=== PATIENT | male | born 1960 | race Caucasian/White ===

== ENCOUNTER 2016-08-27 11:28 | Day surgery (SDC) | payer BC ==
[~2016-08-27 11:28] MED LIST: Buffered Lidocaine 1% SYR 3ML* 3 ML/SYR SYRINGE INTRADERM ONE; Dexamethasone IV* 4 MG/ML 1 ML (4 MG) IV SLOW PU ONE; Famotidine IV* 10 MG/ML 2 ML (20 mg) IV ONE
[2016-08-27] MEDS ORDERED: Famotidine IV* 10 MG/ML 2 ML (20 mg) ONE (11:38)
[2016-08-27] MEDS ORDERED: Dexamethasone IV* 4 MG/ML 1 ML (4 MG) ONE (11:38)
[2016-08-27] MEDS ORDERED: Clindamycin 900 MG IVPREMIX(* 900 MG/50 ML SDV IV ONE (11:38)
[2016-08-27] MEDS ORDERED: Bupivacaine 0.5% W/EPI SDV* 30 ML VIAL ONE (11:54)
[2016-08-27] MEDS ORDERED: Levalbuterol 1.25MG/0.5ML NEB ONE (12:22)
[2016-08-27] MEDS ORDERED: Levalbuterol 0.63MG/3ML NEB INH ONE (12:22)
[2016-08-27] MEDS ORDERED: oxyCODONE/Acetamin 5/325 MG* TAB PO PRN ×3 (12:24→14:22)
[2016-08-27] MEDS ORDERED: HYDROmorphone INJ* 1 MG/ML CARPUJECT SYRINGE IV PRN (12:24)
[2016-08-27] MEDS ORDERED: Ondansetron INJ* 2 MG/ML VIAL IV PRN (12:24)
[2016-08-27] MEDS ORDERED: fentaNYL* 50 MCG/ML 2 ML VIAL (100 MCG VIAL) IV PRN (12:24)
[2016-08-27] MEDS ORDERED: Midazolam* 1 MG/ML 5 ML VIAL (5 MG) ONE (12:37)
[2016-08-27] MEDS ORDERED: fentaNYL* 50 MCG/ML 5 ML VIAL (250 MCG VIAL) ONE (12:37)
[2016-08-27] MEDS ORDERED: Atracurium* 10 MG/ML 10 ML VIAL ONE (12:37)
[2016-08-27] MEDS ORDERED: Ketorolac INJ* 30 MG/ML 1 ML VIAL ONE (12:38)
[2016-08-27] MEDS ORDERED: Lidocaine 2% PF * 5 ML VIAL ONE (12:38)
[2016-08-27] MEDS ORDERED: Propofol* 10 MG/ML 20 ML BTL IV PUSH ONE (12:38)
[2016-08-27] MEDS ORDERED: Ondansetron INJ* 2 MG/ML VIAL ONE (12:38)
[2016-08-27] MEDS ORDERED: EPHEDrine (Pressors)* 50 MG/ML VIAL ONE (13:13)
[2016-08-27] MEDS ORDERED: Glycopyrrolate IV* 0.2 MG/ML 1 ML VIAL ONE (13:36)
[2016-08-27] MEDS ORDERED: Ibuprofen TAB* 400 MG PO PRN (14:23)
[2016-08-27 15:14] VITALS: BP 124/84
--- NOTE | 2016-08-28 04:18 | OP ---
DATE OF OPERATION: 08/27/16 - [facility] DATE OF : 56 SURGEON: Dr. Ferdinand Blake. RE ETCHER: CAROLYNN Massey ANESTHESIOLOGIST: Dr. Chele Higgins. ANESTHESIA: General endotracheal. PRE-OP DIAGNOSIS: Right inguinal hernia. POST-OP DIAGNOSIS: Right inguinal hernia. OPERATIVE PROCEDURE: Laparoscopic preperitoneal repair of right inguinal hernia with mesh. ESTIMATED BLOOD LOSS: Minimal. IV FLUIDS: 1200 mL crystalloids. SPECIMENS: None. DRAINS: None. COMPLICATIONS: None. COUNTS: Instrument, needle, and sponge counts correct. DESCRIPTION OF PROCEDURE: The patient was brought to the operating room and placed on the table supine. Sequential compression devices were placed on both lower extremities and general anesthesia was administered. He had Macias catheters placed. He was positioned and padded appropriately. He was prepped and dapped in the usual sterile fashion. Time-out was performed. Local anesthetic was infiltrated into the skin and soft tissue prior to making each incision. The initial incision was a curvilinear infraumbilical incision using an 11-blade scalpel. After identifying the anterior rectus fascia to the right of midline it was incised transversely and underlying muscles were retracted laterally and then a preperitoneal balloon dissector was placed down to the pubic symphysis and insufflated under direct visualization. The balloon dissector was removed. A 12-mm blunt port was placed and carbon dioxide insufflated to a pressure of 10 mmHg. Under direct visualization, two 5-mm trocars were placed in the lower midline. The dissected proceeded medial to laterally identifying pubic symphysis, Rj' s ligament, and the inferior epigastric vessels. There was a small direct inguinal hernia defect identified and fat was reduced from this. Laterally, the cord components were identified. The peritoneal sac was dissected free from the cord components and this did appear to extend to be an indirect inguinal hernia as well. There was inadvertent injury to the peritoneum which was eventually closed with the 5-mm clip lay out maker. After completing the dissection laterally to the anterior superior iliac spine, repair was performed with the Bard 3D Max large sized mesh for a right side hernia. This was positioned to the preperitoneal space and was unfurled to cover the direct, indirect, and femoral spaces, and the CapSure tacker was used to secure the mesh at the pubis and to Rj's ligament. Subsequently, the space was allowed to desufflate assuring the mesh to be in good position. The ports were removed. Due to pneumoperitoneum, the peritoneal space was accessed through the infraumbilical site and drained of carbon dioxide. The wound was then closed with 3-0 Polysorb in an interrupted fashion to close the posterior and anterior rectus sheath. Skin incisions were closed with 4-0 Monocryl in a subcuticular fashion. Steri-strips were applied. The patient was extubated uneventfully. Macias catheter was removed. He was transferred to the recovery room in stable condition. CC: Chele Tovar MD* [id number]/[facility] #: [id number] MTDD
[2016-08-28] MEDS ORDERED: Prenatal Vitamin TAB PO SCH (09:00)
== END 2016-08-27 15:14 | disposition home or self-care (01) ==
LOC: OR 11:28
PROVIDERS: ATTEND Surgery
DX: K40.91 Unilateral inguinal hernia, without obstruction or gangrene, recurrent (principal); F17.210 Nicotine dependence, cigarettes, uncomplicated
CPT/HCPCS: A9270-GY; C1776; C1781; J1100; J1885; J2250; J2405; J2704; J3010

== ENCOUNTER 2019-08-28 06:45 | Observation (INO) | payer BC ==
--- NOTE | 2019-08-28 07:29 | ED ---
HPI Chest Pain - HPI Summary HPI Summary: Patient is a 59 y/o M presenting to the ED for a chief complaint of intermittent diffuse chest pain that began on 08/24/19. Patient is present with his and daughter. Patient states the chest pain recurred on 08/28/19, waking him from his sleep. Previously, the chest pain was non-radiating, but on 08/28/19, the chest pain began to radiate to his jaw, which he denies ever having in the past. Currently, the jaw pain is resolved. The chest pain is described as a cramping sensation. The chest pain worsens with exertion and improves with rest. Patient notes nausea and change in appetite that he attributes to having an "upset stomach." Patient denies fever, diaphoresis, shortness of breath, or rash. Any significant PMHx is denied. PSHx is significant for inguinal hernia repair, but he denies any recent surgery. FMHx is significant for cardiac disease in his mother who has a pacemaker and had a cardiac stent placed. He denies taking any medications daily. Patient admits tobacco use of 1 ppd and drinking alcohol daily, but none on 08/28/19. He denies drug use. Patient denies taking aspirin on 08/28/19. Patient denies ever having taken nitroglycerin. 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 He denies the chest pain has prevented him from working. Allergies to any medications are denied. Patients medication reviewed this visit. - History of Current Complaint Chief Complaint: EDChestPainROMI Time Seen by Provider: 08/28/19 07:07 Hx Obtained From: Patient Onset/Duration: Atraumatic, Still Present Timing: Intermittent Initial Severity: Moderate Current Severity: Mild Pain Intensity: 1 Pain Scale Used: 0-10 Numeric Chest Pain Location: Diffuse Chest Pain Radiates: Yes Chest Pain Radiates To:: Jaw Character: Other: - Cramping Aggravating Factor(s): Exertion Alleviating Factor(s): Rest Associated Signs and Symptoms: Positive: Chest Pain, Nausea. Negative: Shortness of Breath, Fever, Diaphoresis - Allergy/Home Medications Allergies/Adverse Reactions: Allergies Allergy/AdvReac Type Severity Reaction Status Date / Time Penicillins Allergy Mild Rash And Verified 08/28/19 06:54 Itching Home Medications: Home Medications NK [No Home Medications Reported] 08/28/19 [History Confirmed 08/28/19] PMH/Surg Hx/FS Hx/Imm Hx Previously Healthy: Yes Endocrine/Hematology History: Denies: Hx Diabetes Cardiovascular History: Denies: Hx Congestive Heart Failure, Hx Hypercholesterolemia, Hx Hypertension Respiratory History: Reports: Hx Sleep Apnea - REPORT IN CHART STATES MOD SLEEP APNEA, PT. DENIES GI History: Reports: Other GI Disorders - INGUINAL HERNIA History: Denies: Hx Renal Disease Musculoskeletal History: Reports: Hx Arthritis - WRISTS Sensory History: Denies: Hx Contacts or Glasses, Hx Legally Blind, Hx Deafness, Hx Hearing Aid Opthamlomology History: Denies: Hx Contacts or Glasses, Hx Legally Blind EENT History: Denies: Hx Deafness - Surgical History Surgical History: Yes Surgery Procedure, Year, and Place: 1988 RIGHT INGUINAL HERNIA REPAIR [facility]. 1995 RIGHT WRIST BONE GRAFT [facility]. 2008 BILATERAL EYE LASER. 02/10/2014 LEFT UPPER BACK NARROW EXCISION [facility]. 02/2014 WIDER EXCISION LEFT UPPER BACK WITH SENTINAL NODE BIOPSIES Hx Anesthesia Reactions: No - Immunization History Date of Tetanus Vaccine: unknow Infectious Disease History: No Infectious Disease History: Denies: Traveled Outside the [place] in Last 30 Days - Family History Known Family History: Positive: Cardiac Disease - Social History Occupation: Employed Full-time Lives: With Family Alcohol Use: Daily Alcohol Amount: WHISKEY X 1 NIGHT Hx Substance Use: No Substance Use Type: Reports: None Hx Tobacco Use: Yes Smoking Status (MU): Heavy Every Day Tobacco Smoker Type: Cigarettes Amount Used/How Often: 2-3 CIGS/DAY SINCE 02/10/14, WAS 1-1/2 PPD 40 YRS Have You Smoked in the Last Year: Yes - 1 ppd Review of Systems Negative: Fever, Skin Diaphoresis Positive: Other - Positive jaw pain that radiates from the chest Positive: Chest Pain - Diffuse, radiates to the jaw Negative: Shortness Of Breath Positive: Nausea Negative: Rash All Other Systems Reviewed And Are Negative: Yes Physical Exam Triage Information Reviewed: Yes Vital Signs On Initial Exam: Initial Vitals Temp Pulse Resp BP Pulse Ox 97.7 F 68 15 142/83 99 08/28/19 06:52 08/28/19 06:52 08/28/19 06:52 08/28/19 06:52 08/28/19 06:52 Vital Signs Reviewed: Yes Procedures - Sedation Patient Received Moderate/Deep Sedation with Procedure: No Diagnostics - Vital Signs Vital Signs Temp Pulse Resp BP Pulse Ox 08/28/19 07:00 67 19 97 08/28/19 06:59 66 12 129/87 97 08/28/19 06:52 97.7 F 68 15 142/83 99 - Laboratory Result Diagrams: 08/28/19 07:33 08/28/19 07:33 Lab Statement: Any lab studies that have been ordered have been reviewed, and results considered in the medical decision making process. - Radiology Chest X-ray Radiology Interpretation Completed By: Radiologist Summary of Radiographic Findings: Chest X-ray IMPRESSION: NO ACTIVE CARDIOPULMONARY DISEASE IS NOTED. Reviewed by Dr. Smart. - EKG 06:47 Cardiac Rate: NL - 69 BPM EKG Rhythm: Sinus Rhythm ST Segment: Normal Ectopy: None EKG Comparison: No Significant Change - From 03/2015 Summary of EKG Findings: EKG at 06:47 shows normal sinus rhythm with 69 bpm, no acute ST changes, inverted T wave in lead II, which is old. When compared to 2014, no significant change. Reviewed and interpreted by Dr. Smart. Re-Evaluation - Re-Evaluation First Eval Re-Evaluation Time: 08:10 Change: Unchanged Comment: At 08:10, I updated the patient on his results. He has had no recurrent pain. Chest Pain Course/Dx - Provider Notifications Discussed Care Of Patient With: Maritza Rodríguez - At 08:14, Dr. Maritza Rodríguez reviewed the patients case and agrees to admit the patient to [facility]. Time Discussed With Above Provider: 08:14 Instructed by Provider To: Admit As Inpatient Discharge ED - Sign-Out/Discharge Documenting (check all that apply): Patient Departure - Admit - Discharge Plan Condition: Stable Disposition: ADMITTED TO [facility] - Attestation Statements Document Initiated by Scribe: Yes Documenting Scribe: Delia Borden Provider For Whom Scribe is Documenting (Include Credential): Siena Smart MD Scribe Attestation: Delia Gibbs, scribed for Siena Smart MD on 08/28/19 at 1120. Status of Scribe Document: Ready
[2019-08-28] MEDS ORDERED: Aspirin 81 mg CHEW TAB* 81 MG TAB.CHEW PO ONE (07:42)
[2019-08-28 07:44] LABS: ABS Eosinophils 0.1 10^3/ul (0-0.6); ABS Lymphocytes 1.2 10^3/ul (1.0-4.8); ABS Monocytes 0.5 10^3/ul (0-0.8); ABS Neutrophils 2.3 10^3/ul (1.5-7.7); Eosinophil % 1.4 %; Hematocrit 43 % (42-52); Hemoglobin 14.8 g/dL (14.0-18.0); Lymphocyte % 29.4 %; Mean Corpuscular HGB Conc 34 g/dL (31-36); Mean Corpuscular Hemoglobin 30 pg (27-31); Mean Corpuscular Volume 88 fL (80-94); Mean Platelet Volume 8.1 fL (7.4-10.4); Nucleated Red Blood Cells % 0.2; Platelet Count 208 10^3/uL (150-450); Red Blood Count 4.91 10^6 /uL (4.18-5.48); Red Cell Distribution Width 13 % (10-15); White Blood Count 4.1 10^3/uL (3.5-10.8)
[2019-08-28 08:03] LABS: Albumin 3.6 g/dL (3.2-5.2); Albumin/Globulin Ratio 1.4 (1-3); BUN/Creatinine Ratio 25.9 (8-20); Calcium 8.6 mg/dL (8.6-10.3); EGFR African American 110.9 (>60); EGFR Non-African American 91.6 (>60); Globulin 2.6 g/dL (2-4); Magnesium 1.9 mg/dL (1.9-2.7); Potassium 4.1 mmol/L (3.5-5.0); Total Bilirubin 0.4 mg/dL (0.2-1.0); Total Protein 6.2 g/dL (6.4-8.9)
[2019-08-28] MEDS ORDERED: Acetaminophen TAB* 325 MG PO PRN (08:51)
[2019-08-28] MEDS ORDERED: Enoxaparin(*) 40 MG/0.4 ML SYR SUBCUT SCH (09:00)
[2019-08-28 09:12] LABS: HDL Cholesterol 36.8 mg/dL
--- NOTE | 2019-08-28 11:53 | HP ---
CC: Dr. Chele Tovar * HISTORY AND PHYSICAL: DATE OF ADMISSION: 08/28/19 PRIMARY CARE PROVIDER: Dr. Chele Tovar. ATTENDING: Dr. Maritza Rodríguez * (dictated by CAROLYNN De Luna). CHIEF COMPLAINT: Chest pain. HISTORY OF PRESENT ILLNESS: Mr. Malik is a 59-year-old male with a past medical history of obstructive sleep apnea, noncompliant with CPAP, history of tobacco abuse, who presented to the ER today with complaints of chest pain. The patient reports that this pain began Wednesday while he was sitting. He had sudden onset pain in the anterior chest that he described as cramping without radiation. It went away without intervention and came back intermittently throughout the weekend. He notes that every time the chest pain recurred, it lasted minutes and went away without intervention. He decided to come to the ER today when overnight he woke with chest pain 2 times throughout the night that he described as cramping that again lasted a couple of minutes and resolved on its own. This morning he again woke with pain that was associated with left jaw pain. His left jaw pain lasted 1 to 2 hours. He came to the ER and has since not had jaw pain or chest pain since arrival. He reports that his chest pain is worse with walking. He reports that chest pain is not reproducible. He denies associated nausea, dyspnea, or diaphoresis, although he did have nausea overnight and was unable to eat dinner due to this. He reports no recent travel. He has had symptoms like this in the past, although he has never received a cardiac workup before. 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 Again, his pain is not reproducible. His heart score is 4 , placing him at moderate risk with a 12-16.6% risk of MACE. In the ER, full workup was completed including CBC which was unremarkable. CMP unremarkable. Troponin 0.00 x1. EKG was obtained and revealed rate of 68 with T- wave inversion in lead III, which is unchanged from 2013 EKG. There was some abnormality in the anterior leads that made interpretation difficult and therefore a repeat EKG was performed, which revealed a rate of 58. Again, T- wave inversion in lead III (old). There is no ST elevation or depression. Anterior leads are unremarkable on repeat EKG. Chest x-ray was obtained and was unremarkable. The patient received aspirin 324 mg in the ER and the hospitalist team was asked to evaluate the patient for admission. PAST MEDICAL HISTORY: 1. History of malignant melanoma, status post resection in 2013. 2. Obstructive sleep apnea, noncompliant with CPAP machine. 3. Tobacco abuse. PAST SURGICAL HISTORY: Right inguinal hernia, right wrist, bilateral eye LASIK , melanoma excision left upper back followed by a wide excision of melanoma left upper back with sentinel node biopsy. HOME MEDICATIONS: None except occasional Motrin, last use was Wednesday08/25/19. DRUG ALLERGIES: PENICILLIN, rash/itching. FAMILY HISTORY: Mother has history of Crohn's disease, SLE, permanent pacemaker for third degree heart block. Father has a history of AFib and prostate cancer. Paternal grandfather at approximately age 72 from [place]. Maternal grandmother and maternal grandfather both had CVA. No family history of diabetes. SOCIAL HISTORY: The patient has a 50-pack year smoking history and is a current everyday smoker. He uses alcohol daily, approximately 1.5 ounces of whisky per day. 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 He is . He has 3 children, one of which is nonbiological. In the event that he is unable to make his own medical decisions, he has appointed his Lisa Malik to be his surrogate decision maker. PHYSICAL EXAMINATION GENERAL: Mr. Malik is a well-developed, well-nourished, slightly overweight middle- aged white male who is sitting up in bed. He appears comfortable and in no acute distress. He is breathing comfortably on room air. He is pleasant , cooperative, and appropriate. VITAL SIGNS: Temperature 97.7 oral, heart rate 58, respiratory rate 17, oxygen saturation 95% on room air, blood pressure 115/83. HEENT: PERRL, EOMI, visual gresham are grossly intact. Sclerae are nonicteric without injection. Hearing is grossly intact. Oral mucous membranes are moist. There are no lesions. The pharynx is clear. Tongue is at midline. Palate elevates symmetrically. PULMONARY: Symmetrical chest expansion. No use of accessory muscles. Clear to auscultation bilaterally without rhonchi, wheeze, or rales. CARDIOVASCULAR: Regular rate and rhythm with S1 and S2 present. There is no murmurs, rubs, clicks, or gallops. Chest wall is nontender to palpation. There is no visible JVD. There is no lower extremity edema. ABDOMEN: Bowel sounds in all quadrants. Soft and nontender to palpation. NEUROLOGIC: The patient is awake, he is alert and oriented x3. Cranial nerves II through XII are grossly intact. He is able to move all of his extremities with a motor strength of 5/5 bilaterally in the upper and lower extremities. Motor strength is equal. Jig Box Operator strength is equal. DIAGNOSTIC STUDIES AND LABORATORY DATA: 1. CBC: WBC 4.1, hemoglobin 14.8, hematocrit 48, MCV 88, platelet 208. 2. CMP: Sodium 138, potassium 4.1, chloride 109, carbon-dioxide 25, BUN 22, creatinine 0.85, glucose 104, magnesium 1.9. Total bili 0.40. AST 17, ALT 12. Alk phos 88, troponin 0.00. 3. EKG #1: Rate 69, T-wave inversion in lead III which dates as far back as 2012. There is an abnormality in the anterior leads, which led to repeating EKG. 4. EKG #2: Rate 58, T inversion in lead III (old). No ST elevation or depression. 5. Chest x-ray, impression: No active cardiopulmonary disease is noted. ASSESSMENT AND PLAN: Mr. Malik is an overweight 59-year-old male with past medical history of current tobacco abuse, obstructive sleep apnea, noncompliant with CPAP machine, and a positive family history of cardiac disease, who presented to the ER today with complaints of chest pain that is worsened with exertion. He will be admitted for: 1. Chest pain. Rule out acute coronary syndrome. The patient complains of left anterior chest pain that radiates to the left jaw and is worsened with exertion, not reproducible. In the ER, an EKG was relatively unremarkable with T-wave inversion in lead III. Troponins are negative x1. We will continue to trend troponins. The patient has received 324 mg of aspirin orally. He will continue 81 mg p.o. daily. The patient will be to obtain an exercise stress test today as the patient has relatively unremarkable EKG. Last oral intake was a banana at approximately 0630. Hemoglobin A1c and lipid panel are pending. 2. Tobacco abuse. The patient reports tobacco use. He declined nicotine replacement products at this time. 3. Obstructive sleep apnea. Noncompliant with CPAP machine. 4. DVT prophylaxis. According to the DVT risk assessment, the patient scores 3 placing him at high risk. He has been started on Lovenox. 5. Code status is full code. TIME SPENT: Approximately 60 minutes were spent on this admission, greater than half that time was spent [id number] with the patient and his family obtaining history, performing physical, and reviewing the plan of care. The case has been discussed with my attending Dr. Rodríguez who is in agreement with the plan of care. CAROLYNN GARCÍA [id number]/CPS #: [id number] MALDONADO
[2019-08-28 15:38] VITALS: BP 121/70
--- NOTE | 2019-08-29 01:30 | DS ---
CC: Dr. Chele Tovar * DISCHARGE SUMMARY: DATE OF ADMISSION: 08/28/19 DATE OF DISCHARGE: 08/28/19 PRIMARY CARE PROVIDER: Dr. Chele Tovar. ATTENDING PHYSICIAN: Maritza Rodríguez DO * (dictated by CAROLYNN De Luna). PRIMARY DIAGNOSES: 1. Chest pain, acute coronary syndrome ruled out. 2. Hyperlipidemia. SECONDARY DIAGNOSES: 1. History of malignant melanoma, status post resection in 2013. 2. Obstructive sleep apnea, noncompliant with CPAP. 3. Tobacco abuse. PERTINENT STUDIES WHILE IN THE HOSPITAL: Exercise stress test, impression: Normal ST changes, negative maximum adequate stress test. DISCHARGE MEDICATIONS: Home medications: None. New home medications: None. Changed home medications: None. HISTORY OF PRESENT ILLNESS/HOSPITAL COURSE: Mr. Malik is a 59-year-old male with past medical history of obstructive sleep apnea, noncompliant with CPAP, history of tobacco abuse, who presented to the ER today with complaints of chest pain. For full and complete details, please see the history and physical dictated by Wen Bowen on 08/28/19, but in short, the patient presents with chest pain that he has had intermittently over 3 days. He reports that pain worsened overnight waking him in the middle of the night. This morning pain began to radiate to his jaw. He therefore came to seek medical attention at the ER. His HEART score was 4, and therefore, he was admitted for ACS workup. An EKG was obtained and revealed rate of 58 with T-wave inversion in lead 3 which is old dating back to 2012. There was no ST elevation or depression. Chest x-ray was unremarkable. Troponins were 0.00 x3. An exercise stress test was pursued and reported normal ST changes during exercise with negative maximum adequate stress test. Risk stratification was obtained. Hemoglobin A1c was 5.6. LDL cholesterol was 116. We had a discussion about the goal range of LDL and recommended diet changes versus statin therapy and the patient would prefer to adhere to diet changes over statin therapy. He will further discuss this with his primary care provider. In the meantime, heart healthy diet information was given to the patient. At the time of discharge, the patient denies chest pain, shortness of breath, diaphoresis, headache, dizziness, lightheadedness, vision changes. He denies cough, fever, chills, abdominal pain, nausea, vomiting, diarrhea, constipation, myalgias, arthralgias. Since arrival, he has not had any chest pain. 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 Mr. Malik is stable for discharge. Vital signs at discharge, temperature 97.4 temporal, heart rate 65, respiratory rate 20, oxygen saturation 97% on room air, blood pressure 121/70. PHYSICAL EXAMINATION: Please see physical exam from history and physical dictated this morning, 08/28/19. PLAN: Mr. Malik will be discharged to home. Condition: Good. Diet: Heart healthy. Activity: As tolerated. EDUCATION: 1. Follow up with primary care provider in 4 to 7 days. Discussed recent hospitalization, LDL of 116. 2. Return to the ER or nearest hospital for return or worsening of symptoms, chest pain or discomfort, shortness of breath, dizziness, lightheadedness, loss of consciousness, high fevers, chills, night sweats, or any other worrisome signs or symptoms. This is a summarized report of a complex medical history and hospital stay. For further details, please see the entire medical record. TIME SPENT: Approximately 25 minutes were spent on this discharge, greater than half that time was spent [id number] with the patient discussing discharge plans and instructions. CAROLYNN GARCÍA [id number]/[facility] #: [id number] MTDD
[2019-08-29] MEDS ORDERED: Aspirin 81 mg CHEW TAB* 81 MG TAB.CHEW PO SCH (09:00)
== END 2019-08-28 16:40 | disposition home or self-care (01) ==
LOC: ED 06:45 → MEDTELE 08:51
PROVIDERS: ADMIT Hospitalist; ATTEND Hospitalist
DX: R07.9 Chest pain, unspecified (principal); E78.5 Hyperlipidemia, unspecified; G47.33 Obstructive sleep apnea (adult) (pediatric); F17.210 Nicotine dependence, cigarettes, uncomplicated; Z88.0 Allergy status to penicillin; Z85.820 Personal history of malignant melanoma of skin; R11.0 Nausea; Z82.49 Family history of ischemic heart disease and other diseases of the circulatory system
CPT/HCPCS: 36415; 71045; 80053; 80061; 83036; 83735; 84484; 85025; 93005; 93017; 96372; 99284; A9270-GY; G0378; J1650